=== PATIENT | female | born 1975 | race Asian ===

== ENCOUNTER 2020-12-12 06:25 | Day surgery (SDC) | payer OTHER ==
[2020-12-12] MEDS ORDERED: Ringers Lactate 1,000 ML IV ONE (07:00)
[2020-12-12 07:03] VITALS: O2SAT 99
[2020-12-12] MEDS ORDERED: LIDOCAINE 1% W/EPI 1:100,000 MDV 20 ML VIAL ONE (07:29)
[2020-12-12] MEDS ORDERED: FENTANYL CITR 100 MCG/2 ML ONE (07:35)
[2020-12-12] MEDS ORDERED: propofoL 200 MG/20 ML VIAL IV ONE (07:36)
[2020-12-12] MEDS ORDERED: MIDAZOLAM HCL 2 MG/2 ML INJ ONE (07:36)
[2020-12-12] MEDS ORDERED: LIDOCAINE 1% MPF 2 ML AMPULE ONE (07:48)
[2020-12-12] MEDS ORDERED: KETOROLAC 30 MG/ML INJ ONE (08:10)
[2020-12-12] MEDS ORDERED: ONDANSETRON 4 MG/2 ML VIAL ONE (08:10)
[2020-12-12 08:11] VITALS: BP 127/89; TEMP 97.1
--- NOTE | 2020-12-12 19:00 | OP ---
Date of Procedure: 12/12/2020 Surgeon: Tawana Moe MD Preoperative Diagnosis: Menorrhagia with irregular cycles, AUB-O/A. Postoperative Diagnosis: Menorrhagia with irregular cycles, AUB-O/A. Procedure: Hysteroscopy, dilatation and curettage. Anesthesia: MAC plus paracervical block. Specimens: Endometrial curettings. Complications: No complications. Drains: No drains. Condition: Stable. Findings: Uterus retroflexed 6 to 8 weeks, polypoid endometrium, posterior right lateral wall cavity empty. Adequate sample was retrieved. Indications: The patient is a 45-year-old female who presented with heavy bleeding after placement o f a new IUD, which was expelled spontaneously. She has been bleeding with clots. Had a 5-year IUD p rior to this and did very well with amenorrhea for the entire time. Only had occasional dark brown b leeding. This was change for the patient. Temporarily Depo-progesterone was given to control the bl eeding. Transvaginal ultrasound was done, which showed only a 3 mm stripe, however given the signifi cant abnormal bleeding, endometrial evaluation and sampling were reviewed with the patient, and she w as consented for an in-hospital hysteroscopy and D and C to rule out a polyp, atypia or malignancy. After consenting her appropriately, she was brought to the hospital. The patient is [place] only, and we had a telephone signal circuit designer for the procedure and her [id number] did this over the phone. Procedure In Detail: After reconsenting the patient in the preop area, her was completely un derstanding of the conversation, and she was consented, and taken to the OR. No antibiotics preopera tively. Placed in supine fashion on the operating table. MAC was given. Placed in a dorsal lithoto my position. Retroflexed uterus palpated. Vulva, vagina, and perineum were prepped in a sterile fas hion. Speculum was placed to expose the cervix. Anterior lip was grasped with 2 Allis clamps. Afte r injecting 1% lidocaine, 6 cc at 12 o'clock position, diagnostic hysteroscopy was performed with a S limLine hysteroscope, 30-degree lens, normal saline directly passing through the cervical canal trave rsing it into the uterine cavity under direct vision. Cavity was retroflexed. There was a small merritt t in the endometrial cavity right lateral posterior wall with polypoid endometrium. No masses. Both ostia were visualized. Scope was pulled out. Endometrial curettings were performed after dilating to 16-Georgian with a 0 curette. Adequate sampling was obtained. All the instruments were removed. I nstrument, needle, and sponge counts were done and were correct. Specimen was sent for permanent pat hology. The patient tolerated the procedure well. She was recovered from anesthesia in the OR and t aken to PACU in a stable condition. She has a 1-week follow up for results. Conversation as either using another IUD, which was probably left preferable to the patient, she was interested in Nexplanon insertion because that could serve both purposes of bleeding and control that she would need. If an ablation is done, her cavity is retroflexed and it can be a little bit tricky getting into the uterine cavity. However, this is a feasible option with tubal ligation with suppression. Preoperat ively she was not interested in any surgical management, so she would be appropriate for either ayala nuation of the Depo shot or Nexplanon, if that is what she desires. If that fails, then we will talk about surgery. However, if the pathology shows atypia or malignancy, then we will prefer to proceed with the hysterectomy. NINI/PABLO Voice ID: [id number] Report ID: [id number]
== END 2020-12-12 08:52 | disposition home or self-care (01) ==
LOC: OR 06:25
PROVIDERS: ATTEND Obstetrics & Gynecology
PROC: 0UJD8ZZ Inspection of Uterus and Cervix, Via Natural or Artificial Opening Endoscopic (ICD-10-PCS; 2020-12-12)
PROC: 0UDB7ZX Extraction of Endometrium, Via Natural or Artificial Opening, Diagnostic (ICD-10-PCS; principal; 2020-12-12 07:30)
DX: N92.1 Excessive and frequent menstruation with irregular cycle (principal); N93.9 Abnormal uterine and vaginal bleeding, unspecified; Z20.822 Contact with and (suspected) exposure to COVID-19
CPT/HCPCS: 81025; 88305; 58558; U0002; J2704; J2250; J3010; J7120; J2405